=== PATIENT | female | born 1980 | race Two or more races ===

== ENCOUNTER 2023-03-19 10:45 | Outpatient (RCR) | payer OTHER, SELFPAY | END 2023-06-28 16:18 | disposition home or self-care (01) | PROVIDERS: Visit Provider Internal Medicine | DX: C50.911 Malignant neoplasm of unspecified site of right female breast (principal); Z51.89 Encounter for other specified aftercare | CPT/HCPCS: 97110; 97140; 97165; 97535; X5282 ==